=== PATIENT | male | born 1940 ===

== ENCOUNTER 2017-06-12 10:23 | Day surgery (SDC) | payer MEDICARE, MEDICAID ==
[2016-08-21 08:32] VITALS: PULSE 181
[2016-09-01 10:55] VITALS: BMI 29.2
[2017-06-12 16:08] VITALS: RESP 18
[2017-06-12 16:09] VITALS: BP 128/63; PULSE 56; TEMP 97; O2SAT 100
== END 2017-06-12 16:18 | disposition home or self-care (01) ==
LOC: C.SDS 10:23
PROVIDERS: ATTEND Urology
DX: C61 Malignant neoplasm of prostate (principal)
CPT/HCPCS: 55700; 82948; 88305; 88342; J0696; J1580; J7120